=== PATIENT | male | born 1960 | race African-American/Black ===

== ENCOUNTER 2016-08-20 08:55 | Emergency (ER) | payer MEDICAID ==
[~2016-08-20] VITALS: Ht 180.3 cm; Wt 91.0 kg
[2016-08-20] MEDS ORDERED: KETOROLAC 60MG/2ML VIAL IM ONE (09:30)
[2016-08-20 09:55] VITALS: BP 139/74
== END 2016-08-20 12:06 | disposition home or self-care (01) ==
LOC: ER 09:06
DX: S63.501A Unspecified sprain of right wrist, initial encounter (principal); S50.01XA Contusion of right elbow, initial encounter; S63.619A Unspecified sprain of unspecified finger, initial encounter; S60.021A Contusion of right index finger without damage to nail, initial encounter; S60.011A Contusion of right thumb without damage to nail, initial encounter; I10 Essential (primary) hypertension; I51.9 Heart disease, unspecified; Z88.0 Allergy status to penicillin; Z87.891 Personal history of nicotine dependence; W11.XXXA Fall on and from ladder, initial encounter; Y93.89 Activity, other specified; Y92.018 Other place in single-family (private) house as the place of occurrence of the external cause
CPT/HCPCS: 29125; 73080; 73110; 73130; 96372; 99284; J1885